=== PATIENT | female | born 1955 | race Caucasian/White ===

== ENCOUNTER 2016-10-17 08:10 | Day surgery (SDC) | payer MEDICARE, OTHER ==
[2016-10-17] MEDS ORDERED: Lactated Ringers 1,000 ML IV SCH (08:45)
[2016-10-17] MEDS ORDERED: Bupivacaine 0.5% 50 ML MDV ONE (08:52)
[2016-10-17] MEDS ORDERED: Bacitracin Oint 1 GM U/D Packet ONE (09:05)
[2016-10-17] MEDS ORDERED: Povidone-Iodine 10% Soln 118.25 ML Bottle ONE (09:05)
[2016-10-17] MEDS ORDERED: ceFAZolin 2 GM in Sodium Chloride 0.9% 50 ML IV ONE (09:30)
[2016-10-17] MEDS ORDERED: Midazolam 1 MG/ML 2 ML SDV ONE (10:48)
[2016-10-17] MEDS ORDERED: fentaNYL 100 MCG/2 ML SDV ONE (10:48)
[2016-10-17] MEDS ORDERED: Propofol 200 MG/20 ML SDV ONE (10:48)
[2016-10-17] MEDS ORDERED: Lidocaine 0.5% 50 ML SDV ONE (10:50)
--- NOTE | 2016-10-17 12:30 | OR ---
DATE OF PROCEDURE: 10/17/2016 PREOPERATIVE DIAGNOSIS: Right thumb trigger thumb and right carpal tunnel syndrome. POSTOPERATIVE DIAGNOSIS: Right thumb trigger thumb and right carpal tunnel syndrome. PROCEDURE: Right thumb trigger finger release and right carpal tunnel release. ANESTHESIA: Rose block and conscious sedation. FLUID: Lactated Ringer solution. ESTIMATED BLOOD LOSS: Zero. COMPLICATIONS: None. SPECIMEN: None. DISCHARGE DISPOSITION: Stable to PACU. HISTORY AND INDICATIONS FOR THE PROCEDURE: The patient was seen in the clinic yesterday. She was found to have triggering of her A1 richard on the right thumb as well as symptoms consistent with carpal tunnel syndrome. The patient said she had carpal tunnel release done on the opposite extremity in the past. Risks and benefits of the procedure were explained to the patient. Informed consent was obtained. DETAILS OF PROCEDURE: The patient was seen preoperatively by myself and the anesthesia staff in the preop holding area, where the operative site was marked. She was brought to the operative suite by the Anesthesia Staff where elisabet block was administered. The right upper extremity was then prepped and draped in a sterile manner. Time-out was called identifying the correct patient, correct procedure, the correct site, and antibiotics were given within appropriate period of time. The incision was made first at the carpal tunnel in a longitudinal manner from Chapman's cardinal line proximally in line with the radial border of the 4th digit approximately for 1-1/2 to 2 cm. A small retractor was used. Bleeding was controlled by bipolar electrocautery. The transverse carpal ligament was identified and then incised approximately 2 mm radial to the hamate. The deep fascia was then spread above and below the transverse carpal ligament and into the deep palmar fascia using Anderson and then using a Ragnell under direct visualization. The fascia was released. Irrigation was then used and then horizontal mattress sutures were used to sew the incisions shut. We then focused on the A1 richard of the thumb. It was palpated and a longitudinal incision was made over the A1 richard. A small retractor was used. Bleeding was controlled by bipolar cautery unit and then the A1 richard was incised and part of it was removed. I then used a Ragnell to bring the tendons out of the wound to make sure that it was fully released. We then copiously irrigated with saline and then closed with horizontal mattress suture followed by sterile dressing. The patient was then had a Elisabet block come down and was then taken to the PACU in stable condition. River Alonso DO /[id number]
[2016-10-17 12:57] VITALS: BP 118/72
== END 2016-10-17 13:15 | disposition home or self-care (01) ==
LOC: JP.SDS 08:10
PROVIDERS: ATTEND Orthopaedic Surgery
PROC: 01N50ZZ Release Median Nerve, Open Approach (ICD-10-PCS; principal; 2016-10-17)
PROC: 0LN70ZZ Release Right Hand Tendon, Open Approach (ICD-10-PCS; 2016-10-17)
DX: M65.30 Trigger finger, unspecified finger (principal); G56.01 Carpal tunnel syndrome, right upper limb; M19.90 Unspecified osteoarthritis, unspecified site; J45.909 Unspecified asthma, uncomplicated; K59.09 Other constipation; Z79.890 Hormone replacement therapy; Z79.899 Other long term (current) drug therapy
CPT/HCPCS: 26055; 64721; J0690; J2250; J2704; J3010; J7050; J7120

== ENCOUNTER 2018-07-16 07:34 | Day surgery (SDC) | payer MEDICARE, OTHER ==
[2018-07-16] MEDS ORDERED: Sodium Chloride 0.9% 1,000 ML IV SCH (08:00)
[2018-07-16] MEDS ORDERED: Albuterol/Ipratropium 3.0-0.5 MG/3 ML Neb Soln NEB ONE (08:08)
[2018-07-16] MEDS ORDERED: fentaNYL 100 MCG/2 ML SDV ONE (08:31)
[2018-07-16] MEDS ORDERED: Propofol 200 MG/20 ML SDV ONE (08:31)
[2018-07-16] MEDS ORDERED: Midazolam 1 MG/ML 2 ML SDV ONE (08:32)
[2018-07-16 11:05] VITALS: BP 106/62
--- NOTE | 2018-07-16 11:53 | OR ---
DATE OF PROCEDURE: 07/16/2018 PROCEDURES: 1. EGD. 2. Biopsy, GE junction. 3. Louis pH monitor placement. COMPLICATIONS: None. 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 PREOPERATIVE DIAGNOSIS: Epigastric pain concerning for reflux versus eosinophilic esophagitis. POSTOPERATIVE DIAGNOSIS: Epigastric pain concerning for reflux versus eosinophilic esophagitis. RISKS: Risks, benefits, alternatives, and limitations including, but not limited to infection, bleeding, and perforation were explained to the patient who wished to proceed. PROCEDURE IN DETAIL: The patient was placed in left lateral decubitus position. The EGD scope was introduced and advanced atraumatically into the duodenum. No evidence of duodenitis or ulceration. Within the stomach itself, there was no evidence of ulceration. No gastritis. No abnormalities on retroflex. The GE junction showed mild inflammation consistent with reflux disease or eosinophilic esophagitis and this was biopsied in all 4 quadrants. The junction was measured from the teeth at 37 cm. The esophagus was then inspected. No abnormalities were noted with respect to esophageal evaluation. The Louis was introduced and placed at 6 cm from the Z-line. This was placed by measuring, applying suction for 45 seconds, deploying the device in a standard fashion, and then removing suction. The EGD scope was then reintroduced and was inspected and was noted with good placement. The patient tolerated the procedure well. Tim Rapp MD /[id number]
== END 2018-07-16 10:55 | disposition home or self-care (01) ==
LOC: JP.SDS 07:34
PROVIDERS: ATTEND Surgery
DX: K20.0 Eosinophilic esophagitis (principal); K21.0 Gastro-esophageal reflux disease with esophagitis; N18.9 Chronic kidney disease, unspecified
CPT/HCPCS: 43239; 94640; J2250; J2704; J3010; J7030; 88305; J7620-GY

== ENCOUNTER 2018-12-31 14:56 | Emergency (ER) | payer MEDICARE, OTHER ==
[2018-12-31 15:14] VITALS: BP 96/61
[2018-12-31] MEDS ORDERED: Diazepam 5 MG Tab PO ONE (15:17)
[2018-12-31] MEDS ORDERED: Lactated Ringers 1,000 ML IV ONE (15:17)
--- NOTE | 2018-12-31 15:29 | EDM.PDOC ---
ED HPI GENERAL MEDICAL PROBLEM - General Chief Complaint: Neuro Symptoms/Deficits Stated Complaint: DIZZY Time Seen by Provider: 12/31/18 15:20 Source of Information: Reports: Patient, Old Records History Limitations: Reports: No Limitations - History of Present Illness INITIAL COMMENTS - FREE TEXT/NARRATIVE: 63 yo female was seen in [facility] yesterday for vertigo and given meclizine that has not helped. Has had nausea without vomiting. Has had decreased oral intake. Was told yesterday that if the meclizine didn't help to go to the ER. Gets dizzier if she looks to the right. If she lies perfectly still her dizziness will go away, only to return with any head movement. Onset: Sudden Onset Date: 12/30/18 Duration: Day(s): (1+), Waxing/Waning Location: Reports: Head Quality: Reports: Other (no pain) Severity: Moderate Improves with: Reports: Rest Worsens with: Reports: Movement Context: Reports: Other (See HPI) Associated Symptoms: Reports: Nausea/Vomiting (no vomiting). 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: Other (see below) (meclizine) - Related Data Allergies Allergy/AdvReac Type Severity Reaction Status Date / Time Fish Containing Products Allergy Severe Anaphylactic Verified 12/31/18 15:29 Shock aspirin AdvReac Ringing in Verified 12/31/18 15:29 the Ears simvastatin AdvReac Muscle Verified 12/31/18 15:29 Aches Home Meds: Home Meds Albuterol Sulfate [Albuterol Sulfate HFA] 2 puff IH QID PRN 07/10/14 [History] Cetirizine HCl [Zyrtec] 10 mg PO BEDTIME PRN 07/10/14 [History] DULoxetine HCl [Cymbalta] 120 mg PO DAILY 07/10/14 [History] Diclofenac Sodium [Voltaren 1% Gel] 2 g TOP QID PRN 07/10/14 [History] EPINEPHrine [Epipen] 0.3 mg IM ASDIRECTED PRN 07/10/14 [History] Fenofibrate,Micronized [Lofibra] 200 mg PO QAM 07/10/14 [History] Fluticasone Propionate [Flonase] 2 spray NS DAILY 07/10/14 [History] Fluticasone Propionate [Flovent HFA 110 MCG] 2 puff IH BID 07/10/14 [History] Ipratropium Dow 2 spray NS TID PRN 07/10/14 [History] Lysine 500 mg PO ASDIRECTED PRN 07/10/14 [History] Multivitamin with Minerals [Multiple Vitamin] 1 tab PO DAILY 07/10/14 [History] Olopatadine HCl [Patanol] 1 drop EYEBOTH BID PRN 07/10/14 [History] Polyethylene Glycol 3350 [Miralax] 17 gm PO ASDIRECTED 07/10/14 [History] traZODone HCl [Trazodone HCl] 100 mg PO BEDTIME 07/10/14 [History] Acetaminophen [Tylenol] 650 mg PO Q6H 10/17/16 [History] Levothyroxine [Synthroid] 50 mcg PO ACBREAKFAST 10/17/16 [History] buPROPion HCl [Bupropion Xl] 300 mg PO DAILY 10/17/16 [History] Amphetamine/Dextroamphetamine [Adderall] 10 mg PO DAILY 07/12/18 [History] Docusate Sodium [Colace] 200 mg PO DAILY PRN 07/12/18 [History] Gabapentin [Neurontin] 100 mg PO BID PRN 07/12/18 [History] Guaifenesin/Pseudoephedrne HCl [Mucinex D ER 600-60 mg Tablet] 1 tab PO BID 12/23 [History] Mupirocin Oint [Bactroban Oint] 1 applic TOP BID 07/12/18 [History] Omeprazole 40 mg PO DAILY 07/12/18 [History] Past Medical History HEENT History: Reports: Allergic Rhinitis, Sinusitis Cardiovascular History: Reports: High Cholesterol Respiratory History: Reports: Asthma, Bronchitis, Recurrent Gastrointestinal History: Reports: Chronic Constipation, Colon Polyp Genitourinary History: Reports: Chronic Renal Insuffiency 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: Musculoskeletal History: Reports: Arthritis, Back Pain, Chronic Neurological History: Reports: Other (See Below) Other Neuro History: sinus headaches Psychiatric History: Reports: Depression Endocrine/Metabolic History: Reports: Hypothyroidism, Obesity/BMI 30+ - Infectious Disease History Infectious Disease History: Reports: Chicken Pox, Measles, Mumps - Past Surgical History HEENT Surgical History: Reports: Adenoidectomy, Laser Surgery, Tonsillectomy, Other (See Below) Other HEENT Surgeries/Procedures: deviated septum repair Cardiovascular Surgical History: Reports: None Respiratory Surgical History: Reports: None GI Surgical History: Reports: Cholecystectomy, Colonoscopy, Other (See Below) Other GI Surgeries/Procedures: tummy tuck Female Surgical History: Reports: Tubal Ligation Endocrine Surgical History: Reports: None Neurological Surgical History: Reports: None Musculoskeletal Surgical History: Reports: Arthroscopic Knee, Carpal Tunnel Social & Family History - Family History Family Medical History: Noncontributory - Caffeine Use Caffeine Use: Reports: Tea Caffeine Use Comment: 2 cups/daily ED ROS GENERAL - Review of Systems Review Of Systems: See Below Constitutional: Reports: No Symptoms HEENT: Reports: Vertigo Respiratory: Reports: No Symptoms Cardiovascular: Reports: No Symptoms GI/Abdominal: Reports: No Symptoms, Nausea. Denies: Black Stool, Bloody Stool, Constipation, Diarrhea, Hematemesis, Melena, Vomiting : Reports: No Symptoms Musculoskeletal: Reports: No Symptoms Skin: Reports: No Symptoms Neurological: Reports: Dizziness Psychiatric: Reports: No Symptoms ED EXAM, DIZZINESS - Physical Exam Exam: See Below Exam Limited By: No Limitations General Appearance: Alert, WD/WN, No Apparent Distress Eye Exam: Bilateral Eye: Nystagmus (worse with rightward gaze) Ears: Normal External Exam, Normal Canal, Hearing Grossly Normal, Normal TMs Nose: Normal Inspection, No Blood Throat/Mouth: Normal Inspection, Normal Lips, Normal Oropharynx, Normal Voice, No Airway Compromise Head Exam: Atraumatic, Normocephalic Neck: Normal Inspection Respiratory/Chest: No Respiratory Distress, Lungs Clear, Normal Breath Sounds, No Accessory Muscle Use Cardiovascular: Regular Rate, Rhythm, No Edema GI/Abdominal: No Distention Neurological: Alert, Normal Mood/Affect, CN II-XII Intact, No Motor/Sensory Deficits, Oriented x 3 Extremities: Normal Inspection, Normal Range of Motion, Non-Tender, No Pedal Edema Psychiatric: Normal Affect, Normal Mood Skin Exam: Warm, Dry, Intact, Normal Color, No Rash Course - Vital Signs Text/Narrative:: Some improved after Jonathan maneuvers, still nystagmus on rightward gaze. Last Recorded V/S: Last Vital Signs Temp 36.4 C 12/31/18 15:28 Pulse 79 12/31/18 15:28 Resp 16 12/31/18 15:28 BP 96/61 12/31/18 15:28 Pulse Ox 97 12/31/18 15:28 - Orders/Labs/Meds Labs: Laboratory Tests 12/31/18 12/31/18 Range/Units 15:28 15:28 Hgb 13.4 (12.0-15.0) g/dL Sodium 139 L (140-148) mmol/L Potassium 3.9 (3.6-5.2) mmol/L Chloride 104 (100-108) mmol/L Carbon Dioxide 27 (21-32) mmol/L Anion Gap 11.9 (5.0-14.0) mmol/L BUN 17 (7-18) mg/dL Creatinine 1.2 H (0.6-1.0) mg/dL Est Cr Clr Drug Dosing 39.18 mL/min Estimated GFR (MDRD) 45 L (>60) Glucose 92 (74-106) mg/dL Calcium 9.5 (8.5-10.1) mg/dL Meds: Medications Discontinued Medications Generic Name Dose Route Start Last Admin Trade Name Mi PRN Reason Stop Dose Admin Diazepam 5 mg 12/31/18 15:17 12/31/18 15:31 Valium. PO 12/31/18 15:18 5 mg ONETIME ONE Administration Lactated Ringer's 1,000 mls @ 1,000 mls/hr 12/31/18 15:17 12/31/18 15:38 Ringers, Lactated IV 12/31/18 16:16 1,000 mls/hr BOLUS ONE Administration Departure - Departure Time of Disposition: 17:00 Disposition: Home, Self-Care 01 Condition: Fair Clinical Impression: Vertigo - Discharge Information *PRESCRIPTION DRUG MONITORING PROGRAM REVIEWED*: No *COPY OF PRESCRIPTION DRUG MONITORING REPORT IN PATIENT BRIANNA: No Instructions: Epilepsy, [id number], Vertigo, [id number] Referrals: Kizzy Gilbert MD [Primary Care Provider] - Forms: ED Department Discharge Additional Instructions: Take meclizine every 6 hrs as needed. See your doctor for follow up. Use your walker for added stability.
== END 2018-12-31 17:32 | disposition home or self-care (01) ==
LOC: JP.ED 14:56
DX: R42 Dizziness and giddiness (principal); J45.909 Unspecified asthma, uncomplicated; N18.9 Chronic kidney disease, unspecified; F32.9 Major depressive disorder, single episode, unspecified; M19.90 Unspecified osteoarthritis, unspecified site; E03.9 Hypothyroidism, unspecified; E66.9 Obesity, unspecified; Z68.28 Body mass index [BMI] 28.0-28.9, adult; Z88.8 Allergy status to other drugs, medicaments and biological substances; Z91.013 Allergy to seafood; Z79.899 Other long term (current) drug therapy
CPT/HCPCS: 36415; 80048; 85018; 96360; 99284; A9270; J7120